=== PATIENT | female | born 1965 | race Caucasian/White ===

== ENCOUNTER → 2020-07-20 | Outpatient (CLI) | payer OTHER ==
[2020-07-20 08:39] LABS: BASOPHILS % (AUTO) 1 % (0-1); EOSINOPHILS % (AUTO) 2 % (1-7); LYMPHOCYTES % (AUTO) 32 % (22-44); MEAN CORPUSCULAR HEMOGLOBIN 31.4 pg (27.0-34.8); MEAN CORPUSCULAR HGB CONC 34.2 g/dL (32.4-35.8); MEAN PLATELET VOLUME 7.9 fL (7.4-10.4); MONOCYTES % (AUTO) 10 % (2-9); NEUTROPHILS % (AUTO) 55 % (42-75); PLATELET COUNT 253 x10^3/uL (130-400); RED BLOOD COUNT 4.68 x10^6/uL (3.82-5.3); RED CELL DISTRIBUTION WIDTH 12.5 % (9.6-15.2)
[2020-07-20 08:42] LABS: MD NO
[2020-07-20 08:50] LABS: ALBUMIN 4.1 g/dL (3.4-5.0); ANION GAP 8 mmol/L (5-15); CALCIUM 9.4 mg/dL (8.5-10.1); CHLORIDE 103 mmol/L (98-107)
[2020-07-20 09:15] LABS: ALANINE AMINOTRANSFERASE 23 U/L (12-78); ALKALINE PHOSPHATASE 75 U/L (45-117); BILIRUBIN,TOTAL 0.5 mg/dL (0.2-1.0); CHOLESTEROL, TOTAL 229 mg/dL (140-239); CREATININE 0.74 mg/dL (0.55-1.02); FREE T4 (FREE THYROXINE) 1.43 ng/dL (0.76-1.46); HDL CHOL % 34 % (28-40); HDL CHOLESTEROL (DIRECT) 77 mg/dL (40-60); LDL CHOLESTEROL,CALCULATED 135 mg/dL (54-169); LDL/HDL RATIO 1.8 (0.5-3.0); TOTAL PROTEIN 7.8 g/dL (6.4-8.2); TRIGLYCERIDES 84 mg/dL (50-200); VLDL CHOLESTEROL 17 mg/dL (0-25)
[2020-07-20 09:23] LABS: FOLATE LEVEL > 20.0 ng/mL (3.1-17.5)
== END | disposition home or self-care (01) ==
LOC: LAB 08:24
PROVIDERS: ATTEND Internal Medicine
DX: D50.8 Other iron deficiency anemias (principal); E89.0 Postprocedural hypothyroidism; R20.2 Paresthesia of skin; R25.2 Cramp and spasm
CPT/HCPCS: 36415; 80053; 80061; 82306; 82607; 82728; 82746; 84439; 84443; 85025